=== PATIENT | female | born 1990 | race Caucasian/White ===

== ENCOUNTER 2017-02-27 10:48 | Emergency (ER) | payer MEDICAID ==
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
== END 2017-02-27 12:36 | disposition home or self-care (01) ==
LOC: ER 10:48
DX: O99.341 Other mental disorders complicating pregnancy, first trimester (principal); F32.9 Major depressive disorder, single episode, unspecified; Z3A.01 Less than 8 weeks gestation of pregnancy
CPT/HCPCS: 99283

== ENCOUNTER 2017-03-23 08:24 | Emergency (ER) | payer MEDICAID ==
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
--- NOTE | 2017-03-23 12:26 | ULTRASOUND REPORT ---
EXAM: EMERGENT FIRST TRIMESTER ULTRASOUND HISTORY: BLEEDING. TECHNIQUE: Emergent first trimester ultrasound was obtained. Comparison: Ultrasound of the pelvis from 11/23/09. FINDINGS: On transabdominal images, the uterus measures 10.7 x 6.3 x 6.4 cm. There is a visible intrauterine gestational sac and pole. The ovaries are not well seen transabdominally. Assessment of the amniotic fluid volume and placenta could not be performed due to early gestational age. On transvaginal imaging, there is a visible intrauterine gestational sac with pole. heart tones were obtained at 149 b.p.m. Assessment of the amniotic fluid volume and placenta is not performed due to early gestational age. Cervical length is not assessed at this time. The myometrium is homogeneous. There is a visible yolk sac. The left ovary measures 1.4 x 3.3 x 1.5 cm. The right ovary measures 8.0 x 5.2 x 6.4 cm. There is a 4.3 x 5.3 cm x 5.8 cm simple appearing cyst of the right ovary. This could relate to a corpus luteal cyst. Doppler and spectral analysis with color flow was utilized. Arterial and venous flow to both ovaries. No solid adnexal mass. No free fluid. heart tones obtained at 149 b.p.m. Current ultrasound age is 9 weeks 0 days based on a mean crown rump length of 3.05 cm and gestational sac diameter of 2.95 cm. Question trace amount of fluid in the lower uterine segment/cervix. IMPRESSION: 1. SINGLE, LIVE INTRAUTERINE GESTATION WITH CURRENT ULTRASOUND AGE OF 9 WEEKS 0 DAYS. QUESTION TRACE OF FLUID IN THE LOWER UTERINE SEGMENT/CERVIX. CONTINUE NONEMERGENT OBSTETRICAL FOLLOW-UP RECOMMENDED. 2. POSSIBLE CORPUS LUTEAL CYST OF THE RIGHT OVARY, ABOVE. THIS COULD ALSO BE FOLLOWED NONEMERGENTLY. JOB NUMBER: [id number] MTDD
== END 2017-03-23 10:43 | disposition home or self-care (01) ==
LOC: ER 08:24
DX: O20.0 Threatened abortion (principal); Z3A.09 9 weeks gestation of pregnancy
CPT/HCPCS: 76801; 76817; 99283

== ENCOUNTER 2017-04-30 14:03 | Emergency (ER) | payer MEDICAID ==
--- NOTE | 2017-04-30 14:12 | Emergency Department Record ---
History of Present Illness - General Chief complaint: Abscess Stated complaint: SWOLLEN BUMP ON HEAD Time Seen by Provider: 04/30/17 14:10 Source: Patient Mode of Arrival: Ambulatory Limitations: No limitations - History of Present Illness Initial comments: 27 yo female presents with a tender swollen nodule on the left posterior scalp for 2 days. The area is tender and swollen. No pus. No fevers. No other similar areas. She is 15 weeks . No bleeding. No nausea, vomiting or other current symptoms. MD complaint: Abscess/boil, Lesion -: Days(s) (2) Location: Head Quality: Aching Consistency: Constant Improves with: None Worsens with: Palpation Context: None Associated symptoms: Denies other symptoms Treatments Prior to Arrival: None - Related Data Previous Rx's Medication Instructions Recorded Cephalexin [Keflex] 500 mg PO TID #21 cap 04/30/17 Allergies Allergy/AdvReac Type Severity Reaction Status Date / Time erythromycin base Allergy HIVES Verified 03/23/17 08:39 Review of Systems Constitutional: Denies: Chills, Fever, Malaise Eyes: Denies: Eye discharge, Eye pain, Photophobia, Vision change ENT: Denies: Congestion, Ear pain, Throat pain Respiratory: Denies: Cough, Wheezes Cardiovascular: Denies: Chest pain Endocrine: Denies: Fatigue Gastrointestinal: Denies: Abdominal pain, Diarrhea, Nausea, Vomiting Genitourinary: Denies: Dysuria, Urgency Musculoskeletal: Denies: Arthralgia, Back pain, Myalgia Skin: Reports: As per HPI, Lesions. Denies: Bruising, Change in color, Rash Neurological: Denies: Headache, Numbness, Weakness Psychiatric: Denies: Anxiety Hematological/Lymphatic: Denies: Blood Clots, Easy bleeding, Easy bruising Past Medical History - SOCIAL HISTORY Smoking Status: Former smoker Drug Use: None - RESPIRATORY Hx Respiratory Disorders: No - CARDIOVASCULAR Hx Cardio Disorders: No - NEURO Hx Neuro Disorders: No - GI Hx GI Disorders: No - Hx Genitourinary Disorders: No - ENDOCRINE Hx Endocrine Disorders: No - MUSCULOSKELETAL Hx Musculoskeletal Disorders: No - PSYCH Hx Psych Problems: No - HEMATOLOGY/ONCOLOGY Hx Hematology/Oncology Disorders: No Physical Exam - General General Appearance: Alert, Oriented x3, Cooperative, No acute distress Limitations: No limitations - Head Head exam: Atraumatic, Normocephalic, Normal inspection Image of Face/Head: 1 - 1cm tender slightly swollen area, no fluctuance or pus, no blisters or vesicles. - Eye Eye exam: Normal appearance - ENT ENT exam: Normal exam, Mucous membranes moist Ear exam: Normal external inspection Nasal Exam: Normal inspection Mouth exam: Normal external inspection - Neck Neck exam: Normal inspection, Full ROM. negative: Lymphadenopathy, Meningismus , Tenderness - Respiratory Respiratory exam: Normal lung sounds bilaterally. negative: Respiratory distress - Cardiovascular Cardiovascular Exam: Regular rate, Normal rhythm, Normal heart sounds - Extremities Extremities exam: Normal inspection - Neurological Neurological exam: Alert, Normal gait, Oriented X3 - Psychiatric Psychiatric exam: Normal affect, Normal mood - Skin Skin exam: Dry, Intact, Normal color, Warm Course - Reevaluation(s) Reevaluation #1: The tender area likely represents local ST infection. No fluctuance to drain She will be placed on Keflex which is safe in 04/30/17 14:18 Disposition Disposition: Discharge Clinical Impression: Lymphadenitis, acute Disposition: Home, Self-Care Condition: (1) Good Instructions: Abscess (ED) Additional Instructions: Return in 1-2 days if not improved Return sooner if worse or any new concerns Prescriptions: Cephalexin [Keflex] 500 mg PO TID #21 cap Forms: Patient Portal Access Time of Disposition: 14:10 Quality - Quality Measures Quality Measures: N/A - Blood Pressure Screening Does Patient Have Any of the Following: No Blood Pressure Classification: Normal BP Reading Systolic Measurement: 110 Diastolic Measurement: 64 Screening for High Blood Pressure: < Normal BP, F/U Not Required > [G8783]
== END 2017-04-30 14:22 | disposition home or self-care (01) ==
LOC: ER 14:03
DX: L04.0 Acute lymphadenitis of face, head and neck (principal); Z33.1 Pregnant state, incidental
CPT/HCPCS: 99282

== ENCOUNTER 2018-03-03 09:03 | Emergency (ER) | payer SELFPAY ==
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
== END 2018-03-03 09:52 | disposition home or self-care (01) ==
LOC: ER 09:03
DX: S63.501A Unspecified sprain of right wrist, initial encounter (principal); W50.2XXA Accidental twist by another person, initial encounter; F17.210 Nicotine dependence, cigarettes, uncomplicated; Y92.129 Unspecified place in nursing home as the place of occurrence of the external cause
CPT/HCPCS: 99283

== ENCOUNTER 2018-05-19 14:24 | Emergency (ER) | payer SELFPAY ==
[2018-05-19] MEDS ORDERED: ACETAMINOPHEN 500 MG TABLET PO ONE (15:13)
--- NOTE | 2018-05-19 15:18 | Emergency Department Record ---
History of Present Illness - General Chief complaint: Extremity Problem Stated complaint: RIGHT ARM INJURY Time Seen by Provider: 05/19/18 15:10 Source: Patient Mode of Arrival: Ambulatory Limitations: No limitations - History of Present Illness Initial comments: 28 yo female presents from [facility] where she works. She injured her right wrist and arm helping lift a 2 person lift at work. She has pain with ROM. No swelling. No deformity. The longer it has been the pain hurts up the arm to the neck MD Complaint: Joint pain -: Hour(s) Location: Right History of Same: Yes -: Yes Arthralgia Radiation: Distal Quality: Aching Consistency: Constant Improves with: Immobilization, Rest Worsens with: Exertion, Palpation, Weight bearing Associated Symptoms: Denies other symptoms - Related Data Allergies Allergy/AdvReac Type Severity Reaction Status Date / Time erythromycin base Allergy HIVES Verified 03/03/18 09:13 Review of Systems Constitutional: Denies: Chills, Fever, Malaise, Weakness Eyes: Denies: Eye discharge ENT: Denies: Congestion, Throat pain Respiratory: Denies: Cough Cardiovascular: Denies: Chest pain Endocrine: Denies: Fatigue Gastrointestinal: Denies: Abdominal pain, Diarrhea, Nausea, Vomiting Musculoskeletal: Reports: Arthralgia, Neck pain. Denies: Back pain, Joint swelling, Myalgia Skin: Denies: Bruising, Change in color, Rash Neurological: Denies: Numbness, Tingling, Tremors, Weakness Psychiatric: Denies: Anxiety Hematological/Lymphatic: Denies: Blood Clots, Easy bleeding, Easy bruising Past Medical History - SOCIAL HISTORY Smoking Status: Current every day smoker Drug Use: None - RESPIRATORY Hx Respiratory Disorders: No - CARDIOVASCULAR Hx Cardio Disorders: No - NEURO Hx Neuro Disorders: No - GI Hx GI Disorders: No - Hx Genitourinary Disorders: No - ENDOCRINE Hx Endocrine Disorders: No - MUSCULOSKELETAL Hx Musculoskeletal Disorders: No - PSYCH Hx Psych Problems: No - HEMATOLOGY/ONCOLOGY Hx Hematology/Oncology Disorders: No Physical Exam - General General Appearance: Alert, Oriented x3, Cooperative, No acute distress Limitations: No limitations - Head Head exam: Atraumatic, Normal inspection - Eye Eye exam: Normal appearance. negative: Conjunctival injection - ENT ENT exam: Normal exam Ear exam: Normal external inspection Nasal Exam: Normal inspection Mouth exam: Normal external inspection - Neck Neck exam: Normal inspection, Full ROM. negative: Tenderness - Respiratory Respiratory exam: Normal lung sounds bilaterally. negative: Respiratory distress - Cardiovascular Cardiovascular Exam: Regular rate, Normal rhythm, Normal heart sounds Peripheral Pulses: 2+: Radial (R) - Extremities Extremities exam: Normal inspection, Normal capillary refill, Tenderness. negative: Full ROM, Joint swelling Image of Full Body: 1 - tender medial and lateral, normal inspection, intact senstaion and pulses, pain with ROM, shoulder and elbow full ROM - Neurological Neurological exam: Alert, Oriented X3. negative: Motor sensory deficit - Psychiatric Psychiatric exam: Normal affect, Normal mood - Skin Skin exam: Dry, Intact, Normal color, Warm Course - Reevaluation(s) Reevaluation #1: 05/19/18 16:02 The XR of the wrist was reviewed by me. No acute fracture or dislocation. She was provided a wrist splint for comfort and support We discussed follow up in the next 1-2 weeks if pain continues Disposition Disposition: Discharge Clinical Impression: Right wrist sprain Qualifiers: Encounter type: initial encounter Qualified Code(s): S63.501A - Unspecified sprain of right wrist, initial encounter Disposition: Home, Self-Care Condition: (1) Good Instructions: Wrist Sprain (ED) Additional Instructions: Call your family doctor. Call to schedule the next available appointment for a recheck. Return to ED if your symptoms worsen or if you have any new concerns. Ice the wrist 3 times daily Use the splint for support and comfort Tylenol or Motrin for discomfort Forms: Patient Portal Access Time of Disposition: 16:03 Quality - Quality Measures Quality Measures: N/A - Blood Pressure Screening Does Patient Have Any of the Following: No Blood Pressure Classification: Normal BP Reading Systolic Measurement: 105 Diastolic Measurement: 79 Screening for High Blood Pressure: < Normal BP, F/U Not Required > [[id number]]
--- NOTE | 2018-05-22 14:50 | RADIOLOGY REPORT ---
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 TECHNIQUE: Five views of the right wrist were obtained. Comparison: Right wrist series 03/03/18. Encounter: Initial. FINDINGS: No definite fracture of the wrist identified. No dislocation is seen. No prominent focal soft tissue swelling seen. If wrist symptoms persist , a follow-up study in 10-14 days time would be suggested to exclude a currently radiographically occult fracture. IMPRESSION: THE RIGHT WRIST APPEARS NEGATIVE WITH NO DEFINITE FRACTURE OR DISLOCATION IDENTIFIED. JOB NUMBER: [id number] MTDD
== END 2018-05-19 16:12 | disposition home or self-care (01) ==
LOC: ER 14:24
DX: S63.501A Unspecified sprain of right wrist, initial encounter (principal); X50.9XXA Other and unspecified overexertion or strenuous movements or postures, initial encounter; Y93.F2 Activity, caregiving, lifting; Y92.129 Unspecified place in nursing home as the place of occurrence of the external cause
CPT/HCPCS: 99283

== ENCOUNTER 2018-12-29 13:44 | Emergency (ER) | payer MEDICAID ==
[2018-12-29 14:14] LABS: URINE APPEARANCE CLEAR; URINE BILIRUBIN NEGATIVE (NEGATIVE); URINE BLOOD LARGE (NEGATIVE); URINE COLOR YELLOW; URINE GLUCOSE (UA) NEGATIVE (NEGATIVE); URINE KETONE TRACE (NEGATIVE); URINE LEUKOCYTE ESTERASE NEGATIVE (NEGATIVE); URINE NITRITE NEGATIVE (NEGATIVE); URINE PROTEIN NEGATIVE (NEGATIVE)
[2018-12-29 14:15] LABS: HCG,QUALITATIVE URINE NEGATIVE (NEGATIVE)
[2018-12-29 14:32] LABS: URINE RBC 0 - 2 (NONE SEEN)
[2018-12-29 14:33] LABS: URINE BACTERIA NONE SEEN; URINE EPITHELIAL CELLS 0 - 2 (FEW); URINE WBC NONE SEEN (0-2/hpf)
== END 2018-12-29 15:20 | disposition left against medical advice (07) ==
LOC: ER 13:44
DX: Z53.20 Procedure and treatment not carried out because of patient's decision for unspecified reasons (principal); R10.30 Lower abdominal pain, unspecified
CPT/HCPCS: 81001; 81025; 99281